=== PATIENT | female | born 1990 | race Asian ===

== ENCOUNTER → 2016-03-16 | Outpatient (CLI) | payer OTHER ==
[~2016-03-16] MED LIST: PRENTAB26 PO
[2016-03-16 18:12] LABS: GTGD 50 Grams
== END | disposition home or self-care (01) ==
LOC: C.LAB1850 14:04
PROVIDERS: ATTEND Obstetrics & Gynecology
DX: Z34.02 Encounter for supervision of normal first pregnancy, second trimester (principal)

== ENCOUNTER → 2016-06-09 | Outpatient (CLI) | payer OTHER ==
[2016-06-09 18:11] LABS: URINE APPEARANCE CLEAR (CLEAR); URINE BILIRUBIN NEG (NEG); URINE COLOR YELLOW; URINE EPITHELIAL CELL AUTO 20-30 /lpf (0-5); URINE NITRITE NEG (NEG); URINE PH 7.5 (4.5-7.5); URINE SPECIFIC GRAVITY 1.014 (1.000-1.030); UROBILINOGEN NEG (NEG)
[2016-06-09 18:18] LABS: MANUAL MICROSCOPIC REQUIRED? NO; REVIEW REQ? NO
== END | disposition home or self-care (01) ==
LOC: C.LABSPEC 17:39
PROVIDERS: ATTEND Obstetrics & Gynecology
DX: Z34.03 Encounter for supervision of normal first pregnancy, third trimester (principal)

== ENCOUNTER → 2016-06-09 | Outpatient (CLI) | payer OTHER ==
[2016-06-09 16:32] LABS: HEMATOCRIT 31.5 % (37-47)
[2016-06-09 17:26] LABS: GTGD 50 Grams
== END | disposition home or self-care (01) ==
LOC: C.LAB1850 15:59
PROVIDERS: ATTEND Obstetrics & Gynecology
DX: Z34.03 Encounter for supervision of normal first pregnancy, third trimester (principal)

== ENCOUNTER → 2016-08-04 | Outpatient (CLI) | payer OTHER | END | disposition home or self-care (01) | LOC: C.LABSPEC 17:31 | PROVIDERS: ATTEND Obstetrics & Gynecology | DX: Z34.03 Encounter for supervision of normal first pregnancy, third trimester (principal) ==

== ENCOUNTER 2016-08-26 12:34 | Inpatient (IN) | payer OTHER ==
[~2016-08-26] VITALS: Ht 160 cm; Wt 62.3 kg
[2016-08-26] MEDS ORDERED: LACTATED RINGER'S 1000ML 1,000 ML IV SCH (13:13)
[2016-08-26] MEDS ORDERED: LACTATED RINGER'S 1000ML 1,000 ML IV PRN (13:13)
[2016-08-26] MEDS ORDERED: BUPIVACAINE 0.25% 30 ML VIAL ONE (13:23)
[2016-08-26] MEDS ORDERED: EpHEDrine SULFATE INJ 50 MG/ML AMP ONE (13:24)
[2016-08-26] MEDS ORDERED: FENTANYL CITRATE INJ 50 MCG/1 ML 2 ML VIAL ONE (13:24)
[2016-08-26] MEDS ORDERED: FENTANYL 2MCG/ML ROPIV 1.25MG/ML 100ML BAG EPI ONE (13:24)
[2016-08-26 13:41] LABS: HEMATOCRIT 37.8 % (37-47); MEAN CELL VOLUME 97.7 fL (80-100); MEAN CORPUSCULAR HEMOGLOBIN 33.6 pg (25-34); MEAN PLATELET VOLUME 10.1 fL (7.4-10.4); PLATELET COUNT 176 K/uL (130-400); RED BLOOD COUNT 3.87 M/uL (4.2-5.4); WHITE BLOOD COUNT 11.33 K/uL (4.8-10.8)
[2016-08-26 13:43] LABS: MEAN CORPUSCULAR HGB CONC 34.4 g/dl (32-36)
[2016-08-26 13:49] VITALS: Ht 160 cm; Wt 62.3 kg
[2016-08-26] MEDS ORDERED: PRENTAB26 PO (13:54)
[2016-08-26] MEDS ORDERED: LACTATED RINGER'S 1000ML 500 ML IV PRN (14:59)
[2016-08-26] MEDS ORDERED: NALOXONE HCL INJ 1 MG in SODIUM CHLORIDE 0.9% 1000ML 1,000 ML IV PRN (14:59)
[2016-08-26] MEDS ORDERED: FENTANYL 2MCG/ML ROPIV 1.25MG/ML 100ML BAG EPI PRN (15:00)
[2016-08-26] MEDS ORDERED: NALOXONE HCL INJ 0.4 MG/1 ML VIAL/CARP IV PRN (15:00)
[2016-08-26] MEDS ORDERED: ONDANSETRON INJ 2 MG/ML 2 ML VIAL IV PRN (15:00)
[2016-08-26] MEDS ORDERED: DiphenhydrAMINE HCL 50 MG/ML VIAL IV PRN (15:00)
[2016-08-26] MEDS ORDERED: EpHEDrine SULFATE INJ 50 MG/ML AMP IV PRN (15:00)
[2016-08-26] MEDS ORDERED: NALBUPHINE HCL INJ 10 MG/ML AMP IV PRN (15:00)
[2016-08-26] MEDS ORDERED: PATIENT'S ALLERGY INFO NEEDS ENTERED SCH (15:15)
[2016-08-27] MEDS ORDERED: OXYTOCIN 30 UNITS/500ML NSS IV ONE (00:11)
[2016-08-27] MEDS ORDERED: OXYTOCIN INJ 20 UNITS in LACTATED RINGER'S 1000ML 1,000 ML IV SCH (00:46)
--- NOTE | 2016-08-27 00:50 | Vaginal Delivery Summary ---
Vaginal Delivery Summary Patient dilated to complete and pushed to deliver a viable female Apgars 8 and 9 via over a second-degree perineal laceration. Mouth and nose bulb suctioned at the perineum. Shoulders and body delivered with ease. Infant vigorous and crying upon . Cord clamped at 30 seconds of life. Infant to maternal abdomen. Cord then doubly clamped and cut. Placenta delivered spontaneously and intact. Three-vessel cord. Hemostasis achieved with dilute Pitocin and uterine massage. Laceration repaired in the usual fashion using 3-0 Vicryl. Cervix and sulcus intact. EBL 300 cc's. Mother and baby stable in recovery.
[2016-08-27] MEDS ORDERED: SUPERCREAM 0.870 % 15GM JAR EXT PRN (01:00)
[2016-08-27] MEDS ORDERED: ACETAMINOPHEN/CODEINE 300/30MG TAB PO PRN ×2 (01:00)
[2016-08-27] MEDS ORDERED: ACETAMINOPHEN 325 MG TAB PO PRN (01:00)
[2016-08-27] MEDS ORDERED: OXYTOCIN 30 UNITS/500ML NSS IV PRN (01:00)
[2016-08-27] MEDS ORDERED: DIPHTHERIA/TETANUS/PERTUSSIS 0.5 ML SYR/VIAL IM. ONE (01:00)
[2016-08-27] MEDS ORDERED: HYDROCORTISONE ACETATE 25 MG SUPP PR PRN (01:00)
[2016-08-27] MEDS ORDERED: BENZOCAINE 20% AER SPR 82.5 GM CAN EXT PRN (01:00)
[2016-08-27] MEDS ORDERED: LANOLIN OINT EXT PRN ×2 (01:00)
[2016-08-27 04:00] VITALS: BP 120/77; PULSE 92; TEMP 36.8
[2016-08-27 07:05] VITALS: BP 116/72; PULSE 76; TEMP 37
[2016-08-27 07:10] VITALS: BP 116/74; PULSE 75; TEMP 36.8
--- NOTE | 2016-08-27 07:21 | Progress Note ---
Subjective Aug 27, 2016. Subjective conversation w/ patient, physical exam Ambulation: ambulating normally Voiding: no voiding problems Diet Tolerance: Regular Diet Lochia: Small Feeding Type: Breast Feeding Pain: some cramps Objective Vital Signs Date Time Temp Pulse Resp B/P (MAP) Pulse Ox O2 Delivery O2 Flow Rate FiO2 08/27/16 04:00 Room Air 08/27/16 04:00 36.8 92 18 120/77 Physical Exam General Appearance: WELL-APPEARING, WD/WN, NO APPARENT DISTRESS Respiratory/Chest: lungs clear Cardiovascular: regular rate, rhythm Abdomen: non tender, soft Fundus: Firm, Relation to Umbilicus (2 down) Extremities: non-tender Laboratory Results Last 24 Hours Test 08/26/16 13:24 White Blood Count 11.33 K/uL Red Blood Count 3.87 M/uL Hemoglobin 13.0 g/dL Hematocrit 37.8 % Mean Corpuscular Volume 97.7 fL Mean Corpuscular Hemoglobin 33.6 pg Mean Corpuscular Hemoglobin Concent 34.4 g/dl RDW Standard Deviation 48.4 fL RDW Coefficient of Variation 13.6 % Platelet Count 176 K/uL Mean Platelet Volume 10.1 fL Assessment and Plan Post- Day#: 1 Continue Routine Care: stable, routine care. , rh pos, rubella immune. hematoma at vulva discussed.
[2016-08-27] MEDS: DOCUSATE SODIUM 100 MG CAP PO SCH ×2 (07:33→19:59)
[2016-08-27] MEDS: IBUPROFEN 600 MG TAB PO PRN ×3 (08:31→22:41)
[2016-08-27 12:25] VITALS: BP 105/66; PULSE 85; TEMP 36.4
--- NOTE | 2016-08-27 13:40 | Anesthesia Procedure Note ---
Anesthesia Epidural Removal Nt Date & Time Aug 27, 2016 at 13:39 Vital Signs Pain Intensity: 5.5 Vital Signs Past 12 Hours Date Time Temp Pulse Resp B/P (MAP) Pulse Ox O2 Delivery O2 Flow Rate FiO2 08/27/16 12:25 36.4 85 18 105/66 08/27/16 07:10 36.8 75 16 116/74 08/27/16 07:10 Room Air 08/27/16 07:05 37.0 76 18 116/72 08/27/16 04:00 Room Air 08/27/16 04:00 36.8 92 18 120/77 Notes Mental Status: alert / awake / arousable, participated in evaluation Nausea / Vomiting: adequately controlled Pain: adequately controlled Airway Patency, RR, SpO2: stable & adequate BP & HR: stable & adequate Hydration State: stable & adequate Neuraxial Anesthesia: was administered Anesthetic Complications: no major complications apparent, pt satisfied with anesthetic care Epidural: removed without complications, with tip intact
[2016-08-27 16:00] VITALS: BP 105/69; PULSE 92; TEMP 37
[2016-08-27 19:40] VITALS: BP 102/64; PULSE 81; TEMP 36.9
[2016-08-28] VITALS: BP 107/71; PULSE 74; TEMP 37
--- NOTE | 2016-08-28 07:20 | Progress Note ---
Subjective Aug 28, 2016. Subjective conversation w/ patient, physical exam, chart review, lab review Ambulation: limited ambulation (Mostly to shower) Voiding: no voiding problems Passing Gas: Yes (BM x1 yest) Diet Tolerance: Regular Diet Lochia: Small Feeding Type: Breast Feeding Pain: Cramping during breast feeding. Motrin last night. Review of Systems Constitutional: No fever, No chills Respiratory: No cough, No shortness of breath Cardiac: No chest pain Abdomen: + pain (Mild midline low uterine), No nausea, No vomiting, No diarrhea , No constipation Female : No dysuria Objective Vital Signs Date Time Temp Pulse Resp B/P (MAP) Pulse Ox O2 Delivery O2 Flow Rate FiO2 08/28/16 00:00 37.0 74 16 107/71 08/28/16 00:00 Room Air 08/27/16 19:40 36.9 81 16 102/64 08/27/16 16:05 Room Air 08/27/16 16:00 37.0 92 20 105/69 08/27/16 12:25 36.4 85 18 105/66 08/27/16 07:10 36.8 75 16 116/74 08/27/16 07:10 Room Air Physical Exam General Appearance: WELL-APPEARING, WD/WN, NO APPARENT DISTRESS Respiratory/Chest: lungs clear, normal breath sounds, no respiratory distress Cardiovascular: regular rate, rhythm, no murmur Abdomen: normal bowel sounds, + tenderness (Midline low uterine ttp, mild.) Fundus: Tender (at umbilicus) Extremities: normal range of motion, non-tender, no calf tenderness, + swelling (Bilateral 1+ vaughn edema.) Laboratory Results Test 08/26/16 13:24 White Blood Count 11.33 Red Blood Count 3.87 Hemoglobin 13.0 Hematocrit 37.8 Mean Corpuscular Volume 97.7 Mean Corpuscular Hemoglobin 33.6 Mean Corpuscular Hemoglobin Concent 34.4 RDW Standard Deviation 48.4 RDW Coefficient of Variation 13.6 Platelet Count 176 Mean Platelet Volume 10.1 Assessment and Plan Post- Day#: 1 Continue Routine Care: 26F s/p on 02Jul (PD #1) - GBS neg.. Blood type B pos. Rubella immune. - Vital signs reviewed and stable. - Pain controlled with motrin. - Bilateral leg swelling, likely physiologic. No tenderness on calf palpation. - Encourage breast feeding. - Hemoglobin: 13.0 on 01Jul. Bleeding has improved per pt. Continue to monitor clinically. - Benzocaine and docusate ongoing. - Encourage ambulation. Continue routine post- care. - Plan for d/c home today on tylenol or motrin. Pt counseled on discharge instructions. - Pt agreed with above plan, all current questions answered. Kwasi Ybarra MD, PGY1 Personal Computer Network Analyst Physician Supervision Note: I was present with Dr. Ybarra during the history and exam. I discussed the case with the resident and agree with the findings and plan as documented in the note. Any exceptions or clarifications are listed here: Pt doing well after routine vaginal delivery. Will plan d/c today. Her fundal tenderness is appropriate. normal vs. Instructions reviewed and f/u planned for 6wks. Documented By: Patti Cunha Resident Tracking Resident Involvement: Resident Care Provided Care Provided: OB Delivery (morning round only)
[2016-08-28 07:33] VITALS: BP 105/64; PULSE 76; TEMP 36.6
--- NOTE | 2016-08-28 07:42 | Discharge Instructions ---
Discharge Instructions Date of Service Aug 28, 2016. Admission Reason for Admission: Labor Check Discharge Discharge Diagnosis / Problem: after delivery Discharge Goals Goal(s): Routine recovery after delivery Medications Continue Dispensed Medications: supercream, dermaplast, tucks, lansinoh Activity Recommendations Activity Limitations: as noted below . Instructions / Follow-Up Instructions / Follow-Up ACTIVITY RECOMMENDATIONS: * Gradual return to full activity over the next 2-3 weeks. * No lifting - nothing heavier than baby over the next 2-3 weeks. * Do not engage in vigorous exercise, sexual activity or sports until cleared by your physician. * Do not drive or operate any motorized equipment until cleared by your physician. * You may shower/bathe daily. MEDICATIONS: For discomfort or pain, you may use Acetaminophen (Tylenol), Ibuprofen (Advil), or Naproxen (Aleve) following the package directions. For constipation you may use Colace following the package directions. BREAST CARE: If you are not breast feeding: * Wear a supportive bra 24 hours a day for one to two weeks. * Avoid stimulating your breasts and nipples as much as possible during the first few weeks after delivery. * When taking a shower, have the warm water hit your back, not breasts. * When your breasts feel full, apply ice packs. Usually three to four times a day helps ease the discomfort. * Take a mild pain medication (Tylenol / Motrin) when you are uncomfortable. If breast feeding: * Use breast milk to lubricate nipples. Lansinoh cream may be used for sore nipples. You do not need to remove cream prior to breast feeding. If using a different brand of cream, check the label for directions regarding removal of cream prior to nursing. * Wear a supportive bra. * If having problems with breasts or breast feeding, call a marketing operations consultant or your health care provider. EPISIOTOMY CARE: After delivery, if you have an episiotomy (stitches), the following steps will ease discomfort and aid healing. * For the first 24 hours after delivery, place ice packs next to your episiotomy to help reduce swelling. * After the first 24 hour-period, sitz baths, either portable or in the tub, are suggested. A shower with a shower arm sprayed over the episiotomy may be comforting. * Mayte care should be done after each voiding and bowel movement. Squirt warm water from a plastic bottle over the perineum (region of the body between the anus and urinary opening) and pat dry. * Use Dermoplast to ease discomfort. Shake container. [place] directly over the episiotomy. Place a Tucks on a clean sanitary pad next to your episiotomy. SPECIAL CARE INSTRUCTIONS: When you are discharged from the hospital, it is important for you to follow the instructions listed below: * During the first week at home, you should be able to care for yourself and your baby. In addition, the usual light household activities are encouraged. * Limit your activities to the way you feel. Do not try to clean the house or move furniture. Be sensible. * If you actively engage in sports and have done so up until the time of your delivery, you may resume these activities as soon as you feel able. This may take up to one month or even longer. Use good judgment. * Continue to take your vitamins for at least six weeks after the of your baby. * Your diet need not be limited unless you were on a special diet before your delivery. Breast-feeding mothers need around 2500 calories per day and at least 64-80 ounces of fluid per day (8 to 10 glasses). * You should eat foods from the four major food groups. Crash diets or fad diets are to be avoided. Eating lean meats, fresh fruits and vegetables, low-fat dairy products, high fiber foods and a regular exercise program, will help you get back to your pre- weight without putting your health at risk. * Constipation is sometimes a problem after delivery. Take a mild laxative as needed. If breast feeding, Milk of Magnesia is acceptable to use. You may use a suppository or Fleets enema if no episiotomy. * A daily shower or tub bath is suggested. Be sure to thoroughly and gently dry the perineum. * A bloody vaginal discharge will usually continue until around four weeks post . A small amount of bleeding may continue for as long as six weeks. Vaginal discharge changes from the bright red bleeding after delivery to pink then brownish and finally yellowish-pink before becoming white and disappearing. * Bleeding may increase with activity. Your first period may come in 4-8 weeks. If you are breast feeding, your period may be delayed even longer. * [employer] (sex) can begin whenever both you and your partner feel comfortable and do not have any form of genital infection. It is recommended that you wait at least six weeks for internal and external healing to occur. If you have questions, please talk to your health care practitioner. A condom should be used to prevent infection and . * Foreplay, gentle intercourse and lubrication is very important the first several times to prevent pain. A water-based lubricant such as K-Y jelly or Astroglide may be used. * If you have RH negative blood and your baby is RH positive, you will receive RHOGAM by injection prior to discharge. The nurse will give you a card to keep with you that has the date and place that you received RHOGAM after delivery. * During your care, you had a Rubella screen done to check for the presence of rubella antibodies in your blood. If your test was negative, you will receive a Rubella vaccine prior to discharge. This vaccine may cause a fever, soreness at the injection site and flu-like symptoms. If these symptoms persist, notify your health care practitioner. is not advised for one month after a Rubella vaccine. * Verbalizes understanding of car seat law as reviewed with patient nursing. * Car Seat hand-out given and reviewed with patient by nursing. * Shaken baby information reviewed with patient by nursing. Call you doctor if: * Heavy bleeding (saturating several pads an hour) or passing clots the size of your fist. * A fever >101 degrees F (38.3 degrees C) on two occasions four hours apart and /or chills. * Unusual pain in the pelvic or vaginal areas. * "Baby Blues" lasting longer than two weeks. If you have any questions or concerns, call your health care practitioner at . FOLLOW UP VISIT: * Please call the office at to schedule a 6 week examination. It is important you keep this appointment. It is important for you to make arrangements for either yearly or twice yearly check-ups thereafter. Current Hospital Diet Patient's current hospital diet: Regular OB Diet Discharge Diet Recommended Diet: Regular Diet Pending Studies Studies pending at discharge: no Medical Emergencies . Who to Call and When: Medical Emergencies: If at any time you feel your situation is an emergency, please call 911 immediately. . Non-Emergent Contact Non-Emergency issues call your: Data Modeling Architect . . "Provider Documentation" section prepared by Patti Cunha. . VTE Core Measure Inpt VTE Proph given/why not?: Treatment not indicated
[2016-08-28] MEDS: DOCUSATE SODIUM 100 MG CAP PO SCH ×2 (08:49→20:02)
[2016-08-28] MEDS: IBUPROFEN 600 MG TAB PO PRN (10:58)
[2016-08-28 17:00] VITALS: BP 107/68; PULSE 67; TEMP 36.8
[2016-08-28 23:30] VITALS: BP 97/57; PULSE 67; TEMP 36.7
--- NOTE | 2016-08-29 07:27 | Progress Note ---
Subjective Aug 29, 2016. Subjective conversation w/ patient, physical exam Ambulation: ambulating normally Voiding: no voiding problems Passing Gas: Yes Diet Tolerance: Regular Diet Lochia: Small Feeding Type: Breast Feeding Review of Systems Breast: No see HPI, No breast lump, No change in shape, No nipple discharge, No breast pain, No problem reported Abdomen: No pain, No nausea, No vomiting, No diarrhea, No constipation, No GI bleeding, No problem reported Female : No see HPI, No dysuria, No urinary frequency, No hematuria, No incontinence, No abnormal vaginal bleeding, No vaginal discharge, No problem reported Objective Vital Signs Date Time Temp Pulse Resp B/P (MAP) Pulse Ox O2 Delivery O2 Flow Rate FiO2 08/28/16 23:30 Room Air 08/28/16 23:30 36.7 67 16 97/57 08/28/16 17:00 Room Air 08/28/16 17:00 36.8 67 67 107/68 08/28/16 07:33 36.6 76 16 105/64 Physical Exam General Appearance: WELL-APPEARING, NO APPARENT DISTRESS Abdomen: non tender, soft Fundus: Firm, Non-Tender, Relation to Umbilicus (2 below U) Extremities: no pedal edema, no calf tenderness Assessment and Plan Post- Day#: 2 Continue Routine Care: stable course discharge to home follow up in 6 weeks.
[2016-08-29 07:50] VITALS: BP 102/66; PULSE 74; TEMP 36.8
[2016-08-29] MEDS: DOCUSATE SODIUM 100 MG CAP PO SCH (08:32)
[2016-08-29] MEDS: IBUPROFEN 600 MG TAB PO PRN (08:33)
[2016-08-29 11:45] VITALS: BP_DIAS 66; PULSE 74; TEMP 36.8
== END 2016-08-29 12:35 | disposition home or self-care (01) | DRG 775 ==
LOC: C.OPB 12:34 → C.LD 12:35 → C.OPB 13:14 → C.OBG 08-27 04:28 → EDSTATUS 08-30 12:33
PROVIDERS: ADMIT Obstetrics & Gynecology; ATTEND Obstetrics & Gynecology
PROC: 0KQM0ZZ Repair Perineum Muscle, Open Approach (ICD-10-PCS; principal; 2016-08-27)
PROC: 10E0XZZ Delivery of Products of Conception, External Approach (ICD-10-PCS; principal; 2016-08-27)
DX: O48.0 Post-term pregnancy (principal); Z37.0 Single live birth; O76 Abnormality in fetal heart rate and rhythm complicating labor and delivery; O70.1 Second degree perineal laceration during delivery; Z23 Encounter for immunization; Z3A.39 39 weeks gestation of pregnancy

== ENCOUNTER → 2016-10-12 | Outpatient (CLI) | payer OTHER ==
[2016-10-12 13:15] LABS: URINE APPEARANCE CLEAR (CLEAR); URINE BILIRUBIN NEG (NEG); URINE COLOR DK YELLOW; URINE EPITHELIAL CELL AUTO 0-5 /lpf (0-5); URINE NITRITE NEG (NEG); URINE SPECIFIC GRAVITY 1.024 (1.000-1.030); UROBILINOGEN NEG (NEG)
[2016-10-12 13:24] LABS: MANUAL MICROSCOPIC REQUIRED? NO; REVIEW REQ? NO
== END | disposition home or self-care (01) ==
LOC: C.LABSPEC 12:36
PROVIDERS: ATTEND Obstetrics & Gynecology
DX: R39.9 Unspecified symptoms and signs involving the genitourinary system (principal)

== ENCOUNTER 2018-12-22 20:30 | Inpatient (IN) ==
[2018-12-22] MEDS ORDERED: OXYTOCIN 30 UNITS/500 ML BAG IV PRN (23:09)
[2018-12-22] MEDS ORDERED: fentaNYL citrate 100 MCG/2 ML VIAL ONE (23:28)
[2018-12-22 23:29] LABS: Hematocrit (blood only) 38.5 % (37-47); Hemoglobin 13.4 g/dL (12.0-16.0); Mean Corpuscular Hemoglobin 33.6 pg (25-34); Mean Corpuscular Volume 96.5 fL (80-100); Mean Platelet Volume 10.1 fL (7.4-10.4); Platelet Count 175 K/uL (130-400); RDW Coefficient of Variation 13.3 % (11.5-14.5); RDW Standard Deviation 46.6 fL (36.4-46.3); Red Blood Count 3.99 M/uL (4.2-5.4)
[2018-12-22] MEDS ORDERED: ePHEDrine sulfate 50 MG/ML AMP ONE (23:29)
[2018-12-22] MEDS ORDERED: BUPIVACAINE 0.25% 30 ML VIAL ONE (23:29)
[2018-12-22] MEDS ORDERED: fentaNYL 2MCG/ML ROPIV 1.25MG/ML 100 ML BAG EPI ONE (23:29)
[2018-12-22] MEDS: LACTATED RINGER'S 1,000 ML IV PRN (23:32)
[2018-12-22 23:40] LABS: Mean Corpuscular Hgb Conc 34.8 g/dL (32-36)
[2018-12-23] MEDS ORDERED: fentaNYL 2MCG/ML ROPIV 1.25MG/ML 100 ML BAG EPI PRN (00:26)
[2018-12-23] MEDS ORDERED: NALOXONE HCL 1 MG in SODIUM CHLORIDE 0.9% 1000ML 1,000 ML IV PRN (00:26)
[2018-12-23] MEDS ORDERED: DiphenhydrAMINE HCL 50 MG/ML VIAL IV PRN (00:26)
[2018-12-23] MEDS ORDERED: NALOXONE HCL 0.4 MG/1 ML VIAL/CARP IV PRN (00:26)
[2018-12-23] MEDS ORDERED: ONDANSETRON INJ 2 MG/ML 2 ML VIAL IV PRN (00:26)
[2018-12-23] MEDS ORDERED: NALBUPHINE HCL INJ 10 MG/ML AMP IV PRN (00:26)
[2018-12-23] MEDS ORDERED: PROMETHAZINE HCL 6.25 MG in SODIUM CHLORIDE 0.9% 50 ML IV PRN (00:26)
--- NOTE | 2018-12-23 00:30 | Anesthesiology Consultation ---
Date of Service December 23, 2018 Assessment & Plan (1) Encounter for pre-operative examination: Chart Review Chart Review: Acceptable Risk for Surgery and Patient NOT seen in Pre Admission Testing Consults Requested none ASA ASA2 Proposed Anesthesia Anesthesia Type: CSE Risk / Benefits Reviewed With: PT / POA / Parent / Guardian, Accepts Plan and Informed Consent Obtained History Height/Weight Height: 5 ft 3 in Weight: 63.957 kg Allergies Allergy/AdvReac Type Severity Reaction Status Date / Time No Known Allergies Allergy Verified 12/16/18 11:15 Medications Home Medications Medication Instructions Recorded Confirmed Last Taken vit no.[id number] 1 tab PO DAILY 12/22/18 12/22/18 12/22/18 08:00 [ Vitamin] Active Medications Generic Name Dose Route Start Last Admin Trade Name Freq PRN Reason Stop Dose Admin Lactated Ringer's 1,000 mls @ 125 mls/hr 12/22/18 23:09 12/22/18 23:32 Lr IV 12/24/18 23:08 999 mls/hr .Q8H PRN Administration L&D Protocol Protocol NPO Date Last Intake of Fluids: 12/23/18 Time Last Intake of Fluids: 22:00 Date Last Intake of Solids: 12/23/18 Time Last Intake of Solids: 18:00 Past Medical History Medical History Breast lump Left breast Migraine History of stomach ulcers Exercise / Class Metabolic Activity II 4-5 Yardwork/Stairs/Walk up hill Past Family History Family History Brother Hemophilia Other Anemia Past Anesthesia History No Hx of Anesthesia Complications and No Family Hx of Anesthesia Complications History of PONV No Hx of PONV and No Hx of Motion Sickness Social History Smoking Status: Never smoker Do You Dip or Chew Tobacco: No Hx Alcohol Use: No Hx Substance Use: No substance use type: does not use Physical Exam Vital Signs Last Vital Signs Temp 36.7 C 12/22/18 20:50 Pulse 87 12/23/18 00:27 Resp 18 12/22/18 20:50 BP 95/51 L 12/23/18 00:27 Pulse Ox 100 12/23/18 00:25 ENMT Mouth: no dentition abnormality Thyromental Distance: > or= 3.5 Finger Breadths Mallampati Class: II Neck normal visual inspection Respiratory normal respiratory effort Auscultation: lungs clear to auscultation bilaterally Cardiovascular Rate/Rhythm: regular rate and regular rhythm Psychiatric Orientation: alert Testing Laboratory Results 12/22/18 23:19
[2018-12-23] MEDS: LACTATED RINGER'S 1,000 ML IV PRN ×2 (00:33→07:12)
[2018-12-23] MEDS: ePHEDrine sulfate 50 MG/ML AMP IV PRN ×2 (00:44→04:52)
[2018-12-23] MEDS ORDERED: OXYTOCIN 30 UNITS/500 ML BAG IV PRN ×2 (06:49→11:59)
--- NOTE | 2018-12-23 06:50 | Labor Progress Brief Note ---
Date of Service December 23, 2018 Patient is now comfortable with epidural she is 6 cm. Contractions have spaced with the epidural and I will initiate oxytocin at this time estimated weight 7-8 pounds heart rate category 1 Results & Data Vital Signs (Past 12 Hours) Vital Signs Temp Pulse Resp BP Pulse Ox 12/23/18 06:45 107 H 96 12/23/18 06:44 114 H 96/51 L 12/23/18 06:40 111 H 97 12/23/18 06:35 111 H 96 12/23/18 06:34 111 H 102/57 L 12/23/18 06:30 113 H 18 97 12/23/18 06:25 126 H 99 12/23/18 06:23 114 H 113/62 12/23/18 06:20 110 H 97 12/23/18 06:17 117 H 108/61 12/23/18 06:15 115 H 97 12/23/18 06:12 113 H 93/51 L 94 12/23/18 06:10 118 H 96 12/23/18 06:07 118 H 90/55 L 12/23/18 06:05 111 H 96 12/23/18 06:02 121 H 87/53 L 12/23/18 06:00 120 H 18 97 12/23/18 05:59 114 H 100/53 L 12/23/18 05:55 121 H 96 12/23/18 05:50 117 H 95 12/23/18 05:48 122 H 98/57 L 12/23/18 05:45 112 H 96 12/23/18 05:42 115 H 104/59 L 93 12/23/18 05:40 126 H 97 12/23/18 05:37 118 H 108/61 12/23/18 05:35 121 H 96 12/23/18 05:33 122 H 83/52 L 92 12/23/18 05:30 116 H 18 96 12/23/18 05:27 125 H 89/53 L 12/23/18 05:25 123 H 96 12/23/18 05:23 115 H 91/51 L 12/23/18 05:20 112 H 97 12/23/18 05:18 122 H 100/57 L 12/23/18 05:15 119 H 97 12/23/18 05:12 112 H 99/57 L 12/23/18 05:10 130 H 97 12/23/18 05:06 134 H 92/51 L 12/23/18 05:05 125 H 97 12/23/18 05:04 127 H 102/59 L 12/23/18 05:02 116 H 102/57 L 12/23/18 05:00 111 H 18 100/55 L 98 12/23/18 04:58 122 H 95/54 L 12/23/18 04:55 125 H 98 12/23/18 04:54 131 H 89/56 L 12/23/18 04:51 110 H 87/56 L 94 12/23/18 04:50 107 H 95 12/23/18 04:45 128 H 97 12/23/18 04:40 119 H 96 12/23/18 04:37 107 H 86/49 L 12/23/18 04:35 98 H 96 12/23/18 04:30 99 H 95 12/23/18 04:25 96 H 96 12/23/18 04:23 94 H 93/50 L 94 12/23/18 04:20 101 H 95 12/23/18 04:15 98 H 95 12/23/18 04:10 110 H 96 12/23/18 04:09 96 H 92/50 L 94 12/23/18 04:05 100 H 95 12/23/18 04:00 102 H 18 96 12/23/18 03:55 101 H 95 12/23/18 03:53 101 H 93/50 L 94 12/23/18 03:50 117 H 96 12/23/18 03:45 96 H 95 12/23/18 03:40 107 H 96 12/23/18 03:38 98.6 F 12/23/18 03:37 110 H 92/55 L 12/23/18 03:35 99 H 90/50 L 97 12/23/18 03:30 108 H 18 97 12/23/18 03:25 120 H 97 12/23/18 03:22 118 H 99/54 L 12/23/18 03:20 100 H 97 12/23/18 03:15 101 H 96 12/23/18 03:10 101 H 96 12/23/18 03:09 111 H 95/52 L 12/23/18 03:05 104 H 96 12/23/18 03:00 100 H 96 12/23/18 02:55 106 H 96 12/23/18 02:50 95 H 96 12/23/18 02:48 96 H 98/50 L 12/23/18 02:45 109 H 96 12/23/18 02:43 106 H 100/53 L 12/23/18 02:40 116 H 97 12/23/18 02:39 104 H 111/52 L 12/23/18 02:35 110 H 96 12/23/18 02:34 116 H 94/52 L 12/23/18 02:30 123 H 18 96 12/23/18 02:29 127 H 91/54 L 12/23/18 02:25 128 H 97 12/23/18 02:24 100 H 110/52 L 12/23/18 02:20 103 H 97 12/23/18 02:19 100 H 113/58 L 12/23/18 02:15 106 H 99 12/23/18 02:14 110 H 97/54 L 12/23/18 02:10 116 H 98 12/23/18 02:09 113 H 104/51 L 12/23/18 02:05 105 H 98 12/23/18 02:03 115 H 98/56 L 12/23/18 02:00 110 H 18 97 12/23/18 01:58 117 H 92/50 L 12/23/18 01:55 106 H 98 12/23/18 01:53 107 H 104/57 L 12/23/18 01:50 98.2 F 99 H 97 12/23/18 01:48 112 H 97/54 L 12/23/18 01:45 104 H 96 12/23/18 01:43 123 H 96/53 L 12/23/18 01:40 124 H 97 12/23/18 01:39 120 H 103/55 L 12/23/18 01:35 122 H 97 12/23/18 01:33 115 H 99/58 L 12/23/18 01:30 108 H 18 97 12/23/18 01:28 114 H 97/53 L 12/23/18 01:25 114 H 98 12/23/18 01:23 114 H 95/50 L 12/23/18 01:20 121 H 99 12/23/18 01:19 116 H 100/52 L 12/23/18 01:15 104 H 97 12/23/18 01:14 109 H 102/52 L 12/23/18 01:10 113 H 104/51 L 98 12/23/18 01:05 100 H 97 12/23/18 01:03 106 H 107/56 L 12/23/18 01:00 95 H 18 99 12/23/18 00:58 113 H 106/56 L 12/23/18 00:56 105 H 112/57 L 12/23/18 00:55 98 H 99 12/23/18 00:54 89 110/57 L 12/23/18 00:52 115 H 106/55 L 12/23/18 00:50 98 H 114/59 L 100 12/23/18 00:48 97 H 111/59 L 12/23/18 00:46 109 H 108/58 L 12/23/18 00:45 109 H 99 12/23/18 00:44 106 H 102/52 L 12/23/18 00:43 100 H 111/60 12/23/18 00:40 108 H 93/55 L 100 12/23/18 00:38 98 H 96/50 L 12/23/18 00:36 103 H 99/56 L 12/23/18 00:35 104 H 99 12/23/18 00:34 108 H 103/55 L 12/23/18 00:32 109 H 100/51 L 12/23/18 00:30 97.9 F 106 H 18 108/56 L 100 12/23/18 00:28 78 109/58 L 12/23/18 00:27 87 95/51 L 12/23/18 00:25 80 78/40 L 100 12/23/18 00:22 107 H 98/56 L 12/23/18 00:21 108 H 99/56 L 12/23/18 00:20 107 H 97 12/23/18 00:18 97 H 118/55 L 12/23/18 00:15 106 H 98 12/23/18 00:14 96 H 126/75 94 12/23/18 00:10 108 H 98 12/23/18 00:07 104 H 91 12/23/18 00:05 104 H 96 12/23/18 00:02 99 H 93 12/23/18 00:00 104 H 98 12/22/18 23:55 125 H 98 12/22/18 23:50 100 H 98 12/22/18 23:45 98 H 98 12/22/18 23:42 110 H 133/86 12/22/18 20:50 98.1 F 107 H 18 112/68
--- NOTE | 2018-12-23 08:35 | Labor Progress Brief Note ---
Date of Service December 23, 2018 Subjective Reason For Note: Routine Evaluation Assessment & Plan (1) Supervision of normal intrauterine in multigravida: 28yo at 39.4 weeks GA. Labor 1. Fetus: Cat 1 2. Labor: Unchanged - Continue pitocin/ AROM 3. Vitals: WNL 4. GBS negative Physical Exam Genitourinary: OB Exam Abdomen: + vertex Manual OB Exam: + cervical dilation 5 cm, + cervical effacement 90%, + station -1 and + amniotic fluid clear OB Exam Monitor Tracing: + external FHT monitor used, + external uterine monitor used and + category I Results & Data Vital Signs (Past 12 Hours) Vital Signs Temp Pulse Resp BP Pulse Ox 12/23/18 08:30 112 H 96 12/23/18 08:25 118 H 97 12/23/18 08:24 115 H 88/51 L 12/23/18 08:20 114 H 96 12/23/18 08:15 107 H 96/51 L 96 12/23/18 08:10 123 H 97 12/23/18 08:05 109 H 96 12/23/18 08:04 111 H 87/52 L 12/23/18 08:00 108 H 20 96 12/23/18 07:55 107 H 114/56 L 96 12/23/18 07:50 113 H 97 12/23/18 07:46 115 H 112/55 L 12/23/18 07:45 114 H 97 12/23/18 07:40 111 H 97 12/23/18 07:35 107 H 96 12/23/18 07:34 106 H 104/59 L 12/23/18 07:30 114 H 20 97 12/23/18 07:25 108 H 97 12/23/18 07:24 114 H 105/55 L 12/23/18 07:20 119 H 96 12/23/18 07:15 109 H 96 12/23/18 07:14 112 H 103/54 L 12/23/18 07:10 117 H 97 12/23/18 07:05 36.7 C 117 H 20 99 12/23/18 07:03 120 H 99/57 L 12/23/18 07:00 117 H 18 98 12/23/18 06:59 115 H 96/54 L 12/23/18 06:55 125 H 98 12/23/18 06:54 131 H 88/52 L 12/23/18 06:50 109 H 96 12/23/18 06:45 107 H 96 12/23/18 06:44 114 H 96/51 L 12/23/18 06:40 111 H 97 12/23/18 06:35 111 H 96 12/23/18 06:34 111 H 102/57 L 12/23/18 06:30 113 H 18 97 12/23/18 06:25 126 H 99 12/23/18 06:23 114 H 113/62 12/23/18 06:20 110 H 97 12/23/18 06:17 117 H 108/61 12/23/18 06:15 115 H 97 12/23/18 06:12 113 H 93/51 L 94 12/23/18 06:10 118 H 96 12/23/18 06:07 118 H 90/55 L 12/23/18 06:05 111 H 96 12/23/18 06:02 121 H 87/53 L 12/23/18 06:00 120 H 18 97 12/23/18 05:59 114 H 100/53 L 12/23/18 05:55 121 H 96 12/23/18 05:50 117 H 95 12/23/18 05:48 122 H 98/57 L 12/23/18 05:45 112 H 96 12/23/18 05:42 115 H 104/59 L 93 12/23/18 05:40 126 H 97 12/23/18 05:37 118 H 108/61 12/23/18 05:35 121 H 96 12/23/18 05:33 122 H 83/52 L 92 12/23/18 05:30 116 H 18 96 12/23/18 05:27 125 H 89/53 L 12/23/18 05:25 123 H 96 12/23/18 05:23 115 H 91/51 L 12/23/18 05:20 112 H 97 12/23/18 05:18 122 H 100/57 L 12/23/18 05:15 119 H 97 12/23/18 05:12 112 H 99/57 L 12/23/18 05:10 130 H 97 12/23/18 05:06 134 H 92/51 L 12/23/18 05:05 125 H 97 12/23/18 05:04 127 H 102/59 L 12/23/18 05:02 116 H 102/57 L 12/23/18 05:00 111 H 18 100/55 L 98 12/23/18 04:58 122 H 95/54 L 12/23/18 04:55 125 H 98 12/23/18 04:54 131 H 89/56 L 12/23/18 04:51 110 H 87/56 L 94 12/23/18 04:50 107 H 95 12/23/18 04:45 128 H 97 12/23/18 04:40 119 H 96 12/23/18 04:37 107 H 86/49 L 12/23/18 04:35 98 H 96 12/23/18 04:30 99 H 95 12/23/18 04:25 96 H 96 12/23/18 04:23 94 H 93/50 L 94 12/23/18 04:20 101 H 95 12/23/18 04:15 98 H 95 12/23/18 04:10 110 H 96 12/23/18 04:09 96 H 92/50 L 94 12/23/18 04:05 100 H 95 12/23/18 04:00 102 H 18 96 12/23/18 03:55 101 H 95 12/23/18 03:53 101 H 93/50 L 94 12/23/18 03:50 117 H 96 12/23/18 03:45 96 H 95 12/23/18 03:40 107 H 96 12/23/18 03:38 37.0 C 12/23/18 03:37 110 H 92/55 L 12/23/18 03:35 99 H 90/50 L 97 12/23/18 03:30 108 H 18 97 12/23/18 03:25 120 H 97 12/23/18 03:22 118 H 99/54 L 12/23/18 03:20 100 H 97 12/23/18 03:15 101 H 96 12/23/18 03:10 101 H 96 12/23/18 03:09 111 H 95/52 L 12/23/18 03:05 104 H 96 12/23/18 03:00 100 H 96 12/23/18 02:55 106 H 96 12/23/18 02:50 95 H 96 12/23/18 02:48 96 H 98/50 L 12/23/18 02:45 109 H 96 12/23/18 02:43 106 H 100/53 L 12/23/18 02:40 116 H 97 12/23/18 02:39 104 H 111/52 L 12/23/18 02:35 110 H 96 12/23/18 02:34 116 H 94/52 L 12/23/18 02:30 123 H 18 96 12/23/18 02:29 127 H 91/54 L 12/23/18 02:25 128 H 97 12/23/18 02:24 100 H 110/52 L 12/23/18 02:20 103 H 97 12/23/18 02:19 100 H 113/58 L 12/23/18 02:15 106 H 99 12/23/18 02:14 110 H 97/54 L 12/23/18 02:10 116 H 98 12/23/18 02:09 113 H 104/51 L 12/23/18 02:05 105 H 98 12/23/18 02:03 115 H 98/56 L 12/23/18 02:00 110 H 18 97 12/23/18 01:58 117 H 92/50 L 12/23/18 01:55 106 H 98 12/23/18 01:53 107 H 104/57 L 12/23/18 01:50 36.8 C 99 H 97 12/23/18 01:48 112 H 97/54 L 12/23/18 01:45 104 H 96 12/23/18 01:43 123 H 96/53 L 12/23/18 01:40 124 H 97 12/23/18 01:39 120 H 103/55 L 12/23/18 01:35 122 H 97 12/23/18 01:33 115 H 99/58 L 12/23/18 01:30 108 H 18 97 12/23/18 01:28 114 H 97/53 L 12/23/18 01:25 114 H 98 12/23/18 01:23 114 H 95/50 L 12/23/18 01:20 121 H 99 12/23/18 01:19 116 H 100/52 L 12/23/18 01:15 104 H 97 12/23/18 01:14 109 H 102/52 L 12/23/18 01:10 113 H 104/51 L 98 12/23/18 01:05 100 H 97 12/23/18 01:03 106 H 107/56 L 12/23/18 01:00 95 H 18 99 12/23/18 00:58 113 H 106/56 L 12/23/18 00:56 105 H 112/57 L 12/23/18 00:55 98 H 99 12/23/18 00:54 89 110/57 L 12/23/18 00:52 115 H 106/55 L 12/23/18 00:50 98 H 114/59 L 100 12/23/18 00:48 97 H 111/59 L 12/23/18 00:46 109 H 108/58 L 12/23/18 00:45 109 H 99 12/23/18 00:44 106 H 102/52 L 12/23/18 00:43 100 H 111/60 12/23/18 00:40 108 H 93/55 L 100 12/23/18 00:38 98 H 96/50 L 12/23/18 00:36 103 H 99/56 L 12/23/18 00:35 104 H 99 12/23/18 00:34 108 H 103/55 L 12/23/18 00:32 109 H 100/51 L 12/23/18 00:30 36.6 C 106 H 18 108/56 L 100 12/23/18 00:28 78 109/58 L 12/23/18 00:27 87 95/51 L 12/23/18 00:25 80 78/40 L 100 12/23/18 00:22 107 H 98/56 L 12/23/18 00:21 108 H 99/56 L 12/23/18 00:20 107 H 97 12/23/18 00:18 97 H 118/55 L 12/23/18 00:15 106 H 98 12/23/18 00:14 96 H 126/75 94 12/23/18 00:10 108 H 98 12/23/18 00:07 104 H 91 12/23/18 00:05 104 H 96 12/23/18 00:02 99 H 93 12/23/18 00:00 104 H 98 12/22/18 23:55 125 H 98 12/22/18 23:50 100 H 98 12/22/18 23:45 98 H 98 12/22/18 23:42 110 H 133/86 12/22/18 20:50 36.7 C 107 H 18 112/68
[2018-12-23] MEDS ORDERED: SUPERCREAM 0.870% 15 GM JAR EXT PRN (11:59)
[2018-12-23] MEDS ORDERED: HYDROCORTISONE ACETATE 25 MG SUPP PR PRN (11:59)
[2018-12-23] MEDS ORDERED: BENZOCAINE 20% AER SPR 82.5 GM CAN EXT PRN (11:59)
[2018-12-23] MEDS ORDERED: BISACODYL 10 MG SUPP PR PRN (11:59)
[2018-12-23] MEDS ORDERED: DIPHTHERIA/TETANUS/PERTUSSIS 0.5 ML SYR/VIAL IM ONE (11:59)
--- NOTE | 2018-12-23 12:39 | Anesthesia Procedure Note ---
Date of Service December 23, 2018 Anesthesia Post Epidural Note Vital Signs Vital Signs: Temp Pulse Resp BP Pulse Ox 37.2 C 105 H 20 118/67 98 12/23/18 12:00 12/23/18 12:29 12/23/18 12:15 12/23/18 12:29 12/23/18 11:55 Notes Mental Status: alert / awake / arousable and participated in evaluation Patient Amnestic to Procedure: Yes Nausea / Vomiting: adequately controlled Pain: adequately controlled Airway Patency, RR, SpO2: stable & adequate BP & HR: stable & adequate Hydration State: stable & adequate Neuraxial Anesthesia: was administered and sensory block is resolving Anesthetic Complications: no major complications apparent and Pt Satisfied with anesthetic care
[2018-12-23] MEDS: IBUPROFEN 600 MG TAB PO PRN ×2 (17:08→21:25)
--- NOTE | 2018-12-23 17:08 | Delivery Summary ---
DATE OF OPERATION: 12/23/2018 PROCEDURE: Normal spontaneous vaginal delivery with first degree perineal laceration repair. SURGEON: Dr. Moo Castle. UROLOGY PHYSICIAN: Dr. Nora Reynolds, PGY-1. ESTIMATED BLOOD LOSS: 300 mL. DRAINS: None. FLUIDS: Continuous lactated ringer. URINE OUTPUT: Not measured. COMPLICATIONS: None. FINDINGS: Viable female with weight pending and Apgars of 8 and 9 at 1 and 5 minutes respectively. INDICATIONS: The patient is a 28-year-old G2, P1-0-0-1, admitted at 6.5 cm dilated. The patient shortly thereafter received an epidural and contractions decreased considerably. The patient was started on oxytocin per regular protocol and underwent artificial rupture of membranes for clear fluid. The patient continued to progress in labor to complete-complete +2 station at which time she felt a strong urge to push and pushed over approximately 2 contractions to achieve delivery. DESCRIPTION OF PROCEDURE: The patient progressed to 10 cm dilated, 100% effaced, +2 station, pushed over intact perineum with epidural anesthesia and delivered a viable female with weight and Apgars as noted above. Head of delivered in DEO position, rest into left transverse. Nuchal cord x1 was noted which was reduced. Body and shoulders quickly followed. was noted to be vigorous soon after delivery and a 1-minute delayed cord clamping was initiated. The cord was then double clamped and cut. remained on maternal abdomen as it was still noted to be vigorous. Cord blood was then obtained. Attention was then turned to deliver the placenta, which was delivered intact, 3-vessel cord, gentle cord traction. On inspection of the perineum, vagina and cervix noted to be a first degree perineal laceration which was repaired with 3-0 Vicryl in a single running stitch. Needle, sponge and instrument counts were correct at the completion of the case with mother and stable in immediate post-delivery period. I attest to the content of the Intraoperative Record and any orders documented therein. Any exception s are noted below.
[2018-12-23] MEDS: DOCUSATE SODIUM 100 MG CAP PO SCH (21:25)
[2018-12-24] MEDS: IBUPROFEN 600 MG TAB PO PRN ×4 (02:02→18:01)
[2018-12-24] MEDS: ACETAMINOPHEN 325 MG TAB PO PRN ×2 (05:32→14:46)
[2018-12-24 06:18] LABS: Hematocrit (blood only) 34.9 % (37-47); Mean Corpuscular Hgb Conc 34.4 g/dL (32-36); Mean Corpuscular Volume 95.9 fL (80-100); Mean Platelet Volume 10.1 fL (7.4-10.4); Platelet Count 157 K/uL (130-400); RDW Coefficient of Variation 13.5 % (11.5-14.5); RDW Standard Deviation 47.2 fL (36.4-46.3); Red Blood Count 3.64 M/uL (4.2-5.4); White Blood Count 10.76 K/uL (4.8-10.8)
--- NOTE | 2018-12-24 06:57 | Obstetrical Progress Note ---
Date of Service <Nora Reynolds MD - Last Filed: 12/24/18 06:58> December 24, 2018 Assessment & Plan <Nora Reynolds MD - Last Filed: 12/24/18 06:58> (1) Encounter for care and examination after delivery: 28 yo F with no PMH PPD1 s/p . Hg stable this AM at 12 from 13.4. Continue supportive care and education regarding and baby care. Progressing towards discharge appropriately. Day #:: 1 Subjective <Nora Reynolds MD - Last Filed: 12/24/18 06:58> Ambulation: ambulating normally Voiding: no voiding problems Passing Gas:: Yes Diet Tolerance:: regular diet Feeding Type:: breast feeding Current Pain Level(1-10): 4 28 yo F with no PMH PPD 1 s/p . Feeling okay but still in pain all over this AM. Has been able to move bowel and bladder. Is breast feeding. Constitutional: + fatigue; no fever and no chills Respiratory: no cough and no dyspnea No shortness of breath Cardiovascular: + edema; no chest pain, no syncope and no calf pain Breast: no breast pain Gastrointestinal: + cramping; no abdominal pain, no nausea, no vomiting, no constipation and no diarrhea/loose stools Genitourinary (female): no dysuria and no difficulty urinating Neurologic: no headache(s) Physical Exam <Nora Reynolds MD - Last Filed: 12/24/18 06:58> Constitutional well developed and well nourished Respiratory normal respiratory effort; no respiratory distress, no labored breathing and no cough Auscultation: no crackles, no rales, no rhonchi and no wheezes Cardiovascular Rate/Rhythm: regular rate and regular rhythm Heart Sounds: no gallop, no murmur and no cardiac rub Extremities: + pedal edema Gastrointestinal (Abdomen) Inspection/Auscultation: + abdomen distended and normal bowel sounds Percussion/Palpation: abdomen soft; abdomen nontender and no guarding Musculoskeletal No tenderness to palpation of calves bilaterally Genitourinary Uterus firm, palpable at umbilicus, some tenderness to palpation. Results & Data <Nora Reynolds MD - Last Filed: 12/24/18 06:58> Vital Signs (Past 12 Hours) Vital Signs Temp Pulse Resp BP 10/29/19 03:45 36.9 C 85 18 103/70 12/24/18 00:30 36.9 C 86 16 114/66 12/23/18 19:20 36.8 C 93 H 18 113/70 <Moo Castle MD - Last Filed: 12/24/18 08:17> Co-Signing Physician Notes Patient seen and evaluated and agree with the above findings and plan. Doing well. Continue routine care. Resident Activity Tracking <Nora Reynolds MD - Last Filed: 12/24/18 06:58> Resident Involvement: Resident Care Provided Care Provided: OB Delivery
[2018-12-24] MEDS: PRENATAL VITAMIN 1 TAB PO SCH (07:35)
[2018-12-24] MEDS: DOCUSATE SODIUM 100 MG CAP PO SCH ×2 (07:35→20:25)
[2018-12-24] MEDS ORDERED: BISACODYL 5 MG TABEC PO SCH (20:00)
[2018-12-25] MEDS: IBUPROFEN 600 MG TAB PO PRN ×3 (00:40→11:59)
--- NOTE | 2018-12-25 06:41 | Obstetrical Progress Note ---
Date of Service <Nora Reynolds MD - Last Filed: 12/25/18 06:41> December 25, 2018 Assessment & Plan <Nora Reynolds MD - Last Filed: 12/25/18 06:41> (1) Encounter for care and examination after delivery: 28 yo F with no PMH PPD2 s/p . Ambulating, tolerating regular diet. Pain under good control. Advised that she can use tylenol and ibuprofen alternating at home to provide good pain coverage. Discharge home today. Subjective <Nora Reynolds MD - Last Filed: 12/25/18 06:41> Ambulation: ambulating normally Voiding: no voiding problems Passing Gas:: Yes Diet Tolerance:: regular diet Feeding Type:: breast feeding Current Pain Level(1-10): 0 Constitutional: + fatigue; no fever and no chills Respiratory: no cough and no dyspnea No shortness of breath Cardiovascular: + edema; no chest pain, no syncope and no calf pain Breast: no breast pain Gastrointestinal: + cramping; no abdominal pain, no nausea, no vomiting, no constipation and no diarrhea/loose stools Genitourinary (female): no dysuria and no difficulty urinating Neurologic: no headache(s) Physical Exam <Nora Reynolds MD - Last Filed: 12/25/18 06:41> Constitutional well developed and well nourished Respiratory normal respiratory effort; no respiratory distress, no labored breathing and no cough Auscultation: no crackles, no rales, no rhonchi and no wheezes Cardiovascular Rate/Rhythm: regular rate and regular rhythm Heart Sounds: no gallop, no murmur and no cardiac rub Extremities: no pedal edema Gastrointestinal (Abdomen) Inspection/Auscultation: + abdomen distended and normal bowel sounds Percussion/Palpation: abdomen soft; abdomen nontender and no guarding Genitourinary Uterus firm, nontender, palpable deep and just below level of umbilicus Results & Data <Nora Reynolds MD - Last Filed: 12/25/18 06:41> Vital Signs (Past 12 Hours) Vital Signs Temp Pulse Resp BP 12/24/18 23:17 37.2 C 84 18 118/88 12/24/18 20:00 36.7 C 84 18 119/77 <Iram Gonzalez MD, FACOG - Last Filed: 12/25/18 07:23> Co-Signing Physician Notes Resident Physician Supervision Note: I interviewed and examined the patient. Discussed with Dr. Reynolds and agree with findings and plan as documented in the note. Any exceptions or clarifications are listed here: Doing well. Plan d/c. Instructions reviewed. Documented By: Iram Gonzalez MD, FACOG Resident Activity Tracking <Nora Reynolds MD - Last Filed: 12/25/18 06:41> Resident Involvement: Resident Care Provided Care Provided: OB Delivery
[2018-12-25 06:47] LABS: Hematocrit (blood only) 35.3 % (37-47)
[2018-12-25] MEDS: DOCUSATE SODIUM 100 MG CAP PO SCH (07:39)
[2018-12-25] MEDS: PRENATAL VITAMIN 1 TAB PO SCH (07:39)
== END 2018-12-25 12:58 | disposition home or self-care (01) | DRG 807 ==
LOC: OPB 20:30 → 4S1 20:49 → 4S2 12-23 14:15